=== PATIENT | female | born 1960 | race American Indian/Alaskan Native ===

== ENCOUNTER 2021-02-16 12:38 | Emergency (ER) | payer MEDICARE, OTHER ==
--- NOTE | 2021-02-16 12:58 | EDM.PDOC ---
ED HPI GENERAL MEDICAL PROBLEM - General Chief Complaint: Neuro Symptoms/Deficits Stated Complaint: NUMBNESS IN FACE/L ARM/CHEST TIGHTNESS Time Seen by Provider: 02/16/21 12:45 Source of Information: Reports: Patient History Limitations: Reports: No Limitations - History of Present Illness INITIAL COMMENTS - FREE TEXT/NARRATIVE: The patient came in complaining of an episode of numbness and flushing affecting the left side of her face and the left upper extremity. This is something of a paresthesia-like symptom according to the patient. First episode was 2 days ago and lasted 15 to 20 minutes. She went to a local emergency department and in light of the symptoms was transferred to [place] had additional work-up including an MRI which was said to be normal. She was discharged from that hospital 2 days ago. Yesterday she went to [place] for an ankle-brachial index test ordered by her electronic data processing auditor. She had remained symptom-free in this respect until a short while ago she had a recurrence of a sensation of flushing and tingling and numbness on the left side of her face and she feels that it migrated down the left chest to her left upper extremity. She says she still has the sensation of numbness and paresthesias at the present time. Risk factors include morbid obesity, hypertension, and diabetes. No specific treatment has been ordered prior to arrival. Patient had not taken any medication or tried any other measure to moderate her symptoms. She is a former smoker who quit some 30 years ago. - Related Data Allergies Allergy/AdvReac Type Severity Reaction Status Date / Time ciprofloxacin Allergy Severe Hives Verified 02/16/21 12:52 dulaglutide [From [facility]] Allergy Severe Hives Verified 02/16/21 12:52 Sulfa (Sulfonamide Allergy Severe Hives Verified 02/16/21 12:52 Antibiotics) tetracycline Allergy Severe Hives Verified 02/16/21 12:52 Home Meds: Home Meds Aspirin 81 mg PO DAILY 02/16/21 [History] Cholecalciferol (Vitamin D3) [Vitamin D] 5,000 unit PO DAILY 02/16/21 [History] Insulin Aspart [NovoLOG] 0 unit SQ WITHMEALSANDBED 02/16/21 [History] Insulin Degludec [Tresiba] 40 - 50 unit SQ BEDTIME 02/16/21 [History] Losartan [Cozaar] 10 mg PO DAILY 02/16/21 [History] Magnesium Oxide [Magnesium] 1 tab PO DAILY 02/16/21 [History] amLODIPine [Norvasc] 10 mg PO BEDTIME 02/16/21 [History] atorvaSTATin [Lipitor] 10 mg PO BEDTIME 02/16/21 [History] Social & Family History - Tobacco Use Tobacco Use Status *Q: Former Tobacco User - Caffeine Use Caffeine Use: Reports: Coffee - Recreational Drug Use Recreational Drug Use: No ED ROS GENERAL - Review of Systems Review Of Systems: Comprehensive ROS is negative, except as noted in HPI. ED EXAM, NEURO - Physical Exam Exam: See Below Text/Narrative:: On exam the patient is in no distress. She appears quite obese. She is comfortable and does not appear acutely unwell. Head normocephalic atraumatic. EOMI PERRLA. Neck supple without jugular venous distention. Lungs are clear to auscultation though breath sounds are a bit diminished bilaterally due to body habitus. Heart is regular, sounds are somewhat remote. Incidentally noted is an old area of well-healed burn central upper chest right below the neck. Abdomen is soft and nontender. There is no peripheral edema. Neurologically the patient seems intact. Speech is fluent. Facial grimace symmetrical. She is able to forcefully shut and open her eyes. There is no weakness noted. There is no drift. No neglect. No discernible sensory deficit is noted. Course - Vital Signs Text/Narrative:: There are no salient lab abnormals. Mild anemia. Slightly increased BUN and creatinine. Magnesium is out of the reference range at 2.6. Patient is taking a magnesium supplement and she was advised to stop taking it and get it rechecked in a week. Imaging does not show any acute situation. MRI was recommended but the patient just had an MRI 2 days ago. Options were presented to the patient and her . In light of her general debilitated state she could be admitted in observation status here with a view toward discharging her for inpatient rehab which would be in [place]. She would be there for a couple of weeks if she accepted that option. Another option would be transferring her to [place] for neurological assessment. However I do not feel that there is an acute issue of any seriousness that needs to be treated thusly. Concern is that the patient [place] in a remote area without ready access to a healthcare facility other than a local clinic. She has the ability to live in a town with a hospital and emergency access and she is going to do that for the time being. Patient and her both feel that this is the best option and they will expect to live in a town with more ready access to healthcare for the immediate future. She has additional procedures pending not the least of which is a device to plug the auricular appendage of the left atrium as she apparently has bouts of atrial fibrillation. There is also concerned that she may need a pacemaker in the not too distant future. These evaluations are apparently ongoing and there is no lack of medical vigilance as an outpatient. Last Recorded V/S: Last Vital Signs Temp 36.1 C 02/16/21 12:48 Pulse 69 02/16/21 12:48 Resp 16 02/16/21 12:48 BP 155/76 H 02/16/21 12:48 Pulse Ox 98 02/16/21 12:48 - Orders/Labs/Meds Orders: Active Orders 24 hr Category Date Time Status EKG Documentation Completion [RC] STAT Care 02/16/21 12:59 Active Peripheral IV Care [RC] . DIRECTED Care 02/16/21 13:01 Active Sodium Chloride 0.9% [Saline Flush] Med 02/16/21 12:59 Active 10 ml FLUSH ASDIRECTED PRN Peripheral IV Insertion Adult [OM.PC] Stat Oth 02/16/21 13:00 Ordered Medication Orders Sodium Chloride (Sodium Chloride 0.9% 10 Ml Syringe) 10 ml FLUSH ASDIRECTED PRN PRN Reason: Keep Vein Open Last Admin: 02/16/21 13:11 Dose: 10 ml Documented by: TUNDE Labs: Laboratory Tests 02/16/21 02/16/21 02/16/21 Range/Units 13:05 13:05 13:05 WBC 6.73 (3.98-10.04) K/mm3 RBC 3.17 L (3.98-5.22) M/mm3 Hgb 9.4 L (11.2-15.7) gm/dl Hct 29.6 L (34.1-44.9) % MCV 93.4 (79.4-94.8) fl MCH 29.7 (25.6-32.2) pg MCHC 31.8 L (32.2-35.5) g/dl RDW Std Deviation 40.4 (36.4-46.3) fL Plt Count 336 (182-369) K/mm3 MPV 8.8 L (9.4-12.3) fl Neutrophils % (Manual) 67 H (40-60) % Band Neutrophils % 0 (0-10) % Lymphocytes % (Manual) 24 (20-40) % Atypical Lymphs % 0 % Monocytes % (Manual) 6 (2-10) % Eosinophils % (Manual) 3 (0.7-5.8) % Basophils % (Manual) 0 L (0.1-1.2) Platelet Estimate Adequate RBC Morph Comment Normal ESR 47 H (0-20) mm/hr PT 10.0 (9.7-12.0) SECONDS INR 0.93 Sodium (136-145) mEq/L Potassium (3.5-5.1) mEq/L Chloride (98-107) mEq/L Carbon Dioxide (21-32) mEq/L Anion Gap (5-15) BUN (7-18) mg/dL Creatinine (0.55-1.02) mg/dL Est Cr Clr Drug Dosing mL/min Estimated GFR (MDRD) (>60) mL/min BUN/Creatinine Ratio (14-18) Glucose (80-115) mg/dL POC Glucose (80-115) mg/dL Calcium (8.5-10.1) mg/dL Magnesium (1.8-2.4) mg/dl Total Bilirubin (0.2-1.0) mg/dL AST (15-37) U/L ALT (14-59) U/L Alkaline Phosphatase (46-116) U/L Troponin I (0.00-0.056) ng/mL C-Reactive Protein (<1.0) mg/dL NT-Pro-B Natriuret Pep (0-125) pg/mL Total Protein (6.4-8.2) g/dl Albumin (3.4-5.0) g/dl Globulin gm/dL Albumin/Globulin Ratio (1-2) Urine Opiates Screen (WJMOEM=133) Ur Buprenorphine Scrn (CUTOFF=10) Ur Oxycodone Screen (HQG6SF=617) Urine Methadone Screen (CZBMOW=709) Ur Propoxyphene Screen (PXPNGV=535) Ur Barbiturates Screen (OKDBPG=274) Ur Tricyclics Screen (IHDEIJ=859) Ur Phencyclidine Scrn (CUTOFF=25) Ur Amphetamine Screen (KXUAAI=303) U Methamphetamines Scrn (HGOXEX=789) U Benzodiazepines Scrn (MBBJWR=596) U Cocaine Metab Screen (HAORZF=785) U Marijuana (THC) Screen (CUTOFF=50) 02/16/21 02/16/21 02/16/21 Range/Units 13:05 13:05 13:06 WBC (3.98-10.04) K/mm3 RBC (3.98-5.22) M/mm3 Hgb (11.2-15.7) gm/dl Hct (34.1-44.9) % MCV (79.4-94.8) fl MCH (25.6-32.2) pg MCHC (32.2-35.5) g/dl RDW Std Deviation (36.4-46.3) fL Plt Count (182-369) K/mm3 MPV (9.4-12.3) fl Neutrophils % (Manual) (40-60) % Band Neutrophils % (0-10) % Lymphocytes % (Manual) (20-40) % Atypical Lymphs % % Monocytes % (Manual) (2-10) % Eosinophils % (Manual) (0.7-5.8) % Basophils % (Manual) (0.1-1.2) Platelet Estimate RBC Morph Comment ESR (0-20) mm/hr PT (9.7-12.0) SECONDS INR Sodium 141 (136-145) mEq/L Potassium 4.9 (3.5-5.1) mEq/L Chloride 105 (98-107) mEq/L Carbon Dioxide 27 (21-32) mEq/L Anion Gap 13.9 (5-15) BUN 23 H (7-18) mg/dL Creatinine 1.5 H (0.55-1.02) mg/dL Est Cr Clr Drug Dosing 35.44 mL/min Estimated GFR (MDRD) 35 (>60) mL/min BUN/Creatinine Ratio 15.3 (14-18) Glucose 160 H (80-115) mg/dL POC Glucose 165 H (80-115) mg/dL Calcium 9.1 (8.5-10.1) mg/dL Magnesium 2.6 H (1.8-2.4) mg/dl Total Bilirubin 0.7 (0.2-1.0) mg/dL AST 8 L (15-37) U/L ALT 29 (14-59) U/L Alkaline Phosphatase 114 (46-116) U/L Troponin I < 0.017 (0.00-0.056) ng/mL C-Reactive Protein 3.1 H* (<1.0) mg/dL NT-Pro-B Natriuret Pep 371 H (0-125) pg/mL Total Protein 7.6 (6.4-8.2) g/dl Albumin 3.4 (3.4-5.0) g/dl Globulin 4.2 gm/dL Albumin/Globulin Ratio 0.8 L (1-2) Urine Opiates Screen (QBWFYU=812) Ur Buprenorphine Scrn (CUTOFF=10) Ur Oxycodone Screen (TDF8FO=165) Urine Methadone Screen (FKKPUI=485) Ur Propoxyphene Screen (REFUMK=384) Ur Barbiturates Screen (ZEWAGB=634) Ur Tricyclics Screen (BRPZFJ=482) Ur Phencyclidine Scrn (CUTOFF=25) Ur Amphetamine Screen (CPHWDX=070) U Methamphetamines Scrn (WZLSYV=139) U Benzodiazepines Scrn (LMRFVV=319) U Cocaine Metab Screen (LHUUBM=731) U Marijuana (THC) Screen (CUTOFF=50) 02/16/21 Range/Units 13:45 WBC (3.98-10.04) K/mm3 RBC (3.98-5.22) M/mm3 Hgb (11.2-15.7) gm/dl Hct (34.1-44.9) % MCV (79.4-94.8) fl MCH (25.6-32.2) pg MCHC (32.2-35.5) g/dl RDW Std Deviation (36.4-46.3) fL Plt Count (182-369) K/mm3 MPV (9.4-12.3) fl Neutrophils % (Manual) (40-60) % Band Neutrophils % (0-10) % Lymphocytes % (Manual) (20-40) % Atypical Lymphs % % Monocytes % (Manual) (2-10) % Eosinophils % (Manual) (0.7-5.8) % Basophils % (Manual) (0.1-1.2) Platelet Estimate RBC Morph Comment ESR (0-20) mm/hr PT (9.7-12.0) SECONDS INR Sodium (136-145) mEq/L Potassium (3.5-5.1) mEq/L Chloride (98-107) mEq/L Carbon Dioxide (21-32) mEq/L Anion Gap (5-15) BUN (7-18) mg/dL Creatinine (0.55-1.02) mg/dL Est Cr Clr Drug Dosing mL/min Estimated GFR (MDRD) (>60) mL/min BUN/Creatinine Ratio (14-18) Glucose (80-115) mg/dL POC Glucose (80-115) mg/dL Calcium (8.5-10.1) mg/dL Magnesium (1.8-2.4) mg/dl Total Bilirubin (0.2-1.0) mg/dL AST (15-37) U/L ALT (14-59) U/L Alkaline Phosphatase (46-116) U/L Troponin I (0.00-0.056) ng/mL C-Reactive Protein (<1.0) mg/dL NT-Pro-B Natriuret Pep (0-125) pg/mL Total Protein (6.4-8.2) g/dl Albumin (3.4-5.0) g/dl Globulin gm/dL Albumin/Globulin Ratio (1-2) Urine Opiates Screen Negative (WJJCCF=050) Ur Buprenorphine Scrn Negative (CUTOFF=10) Ur Oxycodone Screen Negative (GZX9PH=024) Urine Methadone Screen Negative (EARMFL=463) Ur Propoxyphene Screen Negative (PQFCQA=104) Ur Barbiturates Screen Negative (EHZHNC=568) Ur Tricyclics Screen Negative (WFPTQY=821) Ur Phencyclidine Scrn Negative (CUTOFF=25) Ur Amphetamine Screen Negative (RNLDQS=142) U Methamphetamines Scrn Negative (RUZTDR=868) U Benzodiazepines Scrn Negative (NBBOWC=496) U Cocaine Metab Screen Negative (AEKWOP=452) U Marijuana (THC) Screen Negative (CUTOFF=50) Meds: Medications Generic Name Dose Route Start Last Admin Trade Name Freq PRN Reason Stop Dose Admin Sodium Chloride 10 ml 02/16/21 12:59 02/16/21 13:11 Sodium Chloride 0.9% 10 Ml Syringe FLUSH 10 ml ASDIRECTED PRN Administration Keep Vein Open Departure - Departure Time of Disposition: 15:48 Disposition: Home, Self-Care 01 Condition: Good Clinical Impression: Facial paresthesia, Paresthesia of left arm, Obesity, morbid, BMI 40.0-49.9, Abnormal blood level of magnesium - Discharge Information Referrals: PCP,Not In Area [Primary Care Provider] - Forms: ED Department Discharge Additional Instructions: You have paresthesias of your face and arm which are not clinically threatening. Your evaluation is fairly unremarkable despite chronic issues. I agree that you should reside where you can get medical attention quickly and I feel that an admission at this point does not have the potential to do much for you. However you should seek medical attention immediately, do not hesitate to call 911, for chest pain, neurological issues such as tingling weakness difficulty speaking. Your magnesium level was slightly elevated and I recommend that you stop taking your magnesium supplement and have your level rechecked next week. Sepsis Event Note (ED) - Evaluation Sepsis Screening Result: No Definite Risk - Focused Exam Vital Signs: Vital Signs Temp Pulse Resp BP Pulse Ox 02/16/21 12:48 36.1 C 69 16 155/76 H 98 - My Orders Last 24 Hours: My Active Orders 02/16/21 12:59 EKG Documentation Completion [RC] STAT Sodium Chloride 0.9% [Saline Flush] 10 ml FLUSH ASDIRECTED PRN 02/16/21 13:00 Peripheral IV Insertion Adult [OM.PC] Stat 02/16/21 13:01 Peripheral IV Care [RC] . DIRECTED - Assessment/Plan Last 24 Hours: My Active Orders 02/16/21 12:59 EKG Documentation Completion [RC] STAT Sodium Chloride 0.9% [Saline Flush] 10 ml FLUSH ASDIRECTED PRN 02/16/21 13:00 Peripheral IV Insertion Adult [OM.PC] Stat 02/16/21 13:01 Peripheral IV Care [RC] . DIRECTED
[2021-02-16] MEDS ORDERED: Sodium Chloride 0.9% 10 ML Syringe FLUSH PRN (12:59)
--- NOTE | 2021-02-16 13:41 | CT ---
Head CT Technique: Multiple axial sections through the brain were obtained. Intravenous contrast was not utilized. Reconstructed coronal and sagittal images were obtained. Comparison: No prior intracranial imaging is available. Findings: Ventricles along with basal cisterns and sulci over the convexities are within normal limits for the patient's age. No abnormal parenchymal densities are seen. No evidence of intracranial hemorrhage. No midline shift or mass-effect is appreciated. Bone window settings were reviewed. No acute calvarial finding is seen. Visualized mastoid and paranasal sinuses shows nothing acute. Impression: 1. No abnormality is identified on noncontrast head CT study. 2. Considering the patient's symptoms, MRI study could be considered. Diagnostic code #1
--- NOTE | 2021-02-16 13:52 | CR ---
Chest: AP view of the chest was obtained. Comparison: No prior chest imaging is available. Heart size and mediastinum are within normal limits for AP technique. Lungs are clear with no acute parenchymal change. Bony structures show nothing acute. Impression: 1. Nothing acute is seen on AP chest x-ray. Diagnostic code #1
== END 2021-02-16 16:10 | disposition home or self-care (01) ==
LOC: JD.ED 12:38
DX: R79.0 Abnormal level of blood mineral (principal); R20.2 Paresthesia of skin; E66.01 Morbid (severe) obesity due to excess calories; I10 Essential (primary) hypertension; E11.9 Type 2 diabetes mellitus without complications; D64.9 Anemia, unspecified; Z68.42 Body mass index [BMI] 45.0-49.9, adult; Z87.891 Personal history of nicotine dependence; Z88.1 Allergy status to other antibiotic agents; Z88.2 Allergy status to sulfonamides; Z88.8 Allergy status to other drugs, medicaments and biological substances; Z79.82 Long term (current) use of aspirin; Z79.4 Long term (current) use of insulin; Z79.899 Other long term (current) drug therapy
CPT/HCPCS: 36415; 70450; 70450-26; 71045; 71045-26; 80053; 80306; 82962; 83735; 83880; 84484; 85007; 85027; 85610; 85652; 86140; 93005; 99283; 99284-25